=== PATIENT | male | born 1945 | race Caucasian/White ===

== ENCOUNTER 2021-09-05 06:32 | Day surgery (SDC) | payer OTHER, BC ==
[2021-09-03 11:25] LABS: Absolute Lymphocytes (CBC) 1.9 K/uL (0.7-4.9); Basophils % 0.6 % (0-1.3); Hematocrit 46.8 % (39.6-49.0); Lymphocytes % 26.8 % (15.3-44.8); MPV 8.2 fL (7.6-11.3); RBC Red Blood Cell Count 5.23 M/uL (4.33-5.43)
--- NOTE | 2021-09-03 11:36 | RAD REPORT ---
EXAM DESCRIPTION: RAD - Chest Pa And Lat (2 Views) - 09/03/2021 11:09 am CLINICAL HISTORY: Pre op pending hernia procedure COMPARISON: CHEST SINGLE VIEW dated 06/09/2015 FINDINGS: Lines: None. Lungs: No evidence of edema or pneumonia. Linear scarring in the right mid lung. Pleural: No significant pleural effusions or pneumothorax. Cardiac: The heart size is within normal limits. Bones: No acute fractures. Other: Atherosclerosis. IMPRESSION: No acute cardiopulmonary disease.
[2021-09-05] MEDS ORDERED: Ringers Lactate 1,000 ML IV ONE (06:50)
[2021-09-05] MEDS ORDERED: FENTANYL CITR 100 MCG/2 ML ONE ×2 (06:55→08:56)
[2021-09-05] MEDS ORDERED: propofoL 200 MG/20 ML VIAL IV ONE (06:56)
[2021-09-05] MEDS ORDERED: EPHEDRINE SULF 50 MG/ML VIAL ONE (06:56)
[2021-09-05] MEDS ORDERED: GLYCOPYRROLATE 0.2 MG/ML SYR ONE (06:57)
[2021-09-05] MEDS ORDERED: ROCURONIUM 50 MG/5 ML VIAL IV ONE (06:57)
[2021-09-05] MEDS ORDERED: LIDOCAINE 2% MPF 5 ML VIAL ONE (06:57)
[2021-09-05] MEDS ORDERED: ONDANSETRON 4 MG/2 ML VIAL ONE (06:59)
[2021-09-05] MEDS ORDERED: NEOSTIGMINE 1 MG/ML -5 ML ONE (06:59)
[2021-09-05] MEDS: CEFAZOLIN/NS 1gm 1 GM/50 ML BAG ONE ×2 (07:35→07:39)
[2021-09-05] MEDS: BUPIVACAINE 0.5% Inj,MDV 50 mL VIAL ONE ×2 (07:40→07:59)
[2021-09-05] MEDS: Ringers Lactate 1,000 ML IV ONE ×2 (09:36→11:10)
[2021-09-05] MEDS ORDERED: HYDROMORPHONE HCL 1 MG/ML INJ ONE (09:57)
--- NOTE | 2021-09-05 10:54 | P.BOP ---
Preoperative diagnosis: incarcerated ventral, umbilical and right inguinal hernia Postoperative diagnosis: same Primary procedure: 1. Laparoscopic repair of incarcerated ventral hernia with mesh, 2. Lap MERCEDES Secondary procedure: 3. Laparoscopic repair of umbilical hernia, 4. open RIH rep air with mesh Other procedure(s): 5. lap insional bx peritoneal hyperpigmentated lesions Anesthesia: General Implants: large ventralex mesh(ventral), RIH plug and sheet mesh Transferred to: Recovery Room Condition: Good
[2021-09-05 11:28] VITALS: TEMP 97.5; O2SAT 98
[2021-09-05] MEDS ORDERED: HYDROCODONE/APAP 7.5/325 MG TAB ONE (11:42)
[2021-09-05 14:47] VITALS: BP 134/71
--- NOTE | 2021-09-05 22:39 | OP ---
Date of Procedure: 09/05/2021 Surgeon: Donal Anna MD Preoperative Diagnoses: Incarcerated ventral hernia, incarcerated umbilical hernia, and incarcerated right inguinal hernia. Postoperative Diagnoses: Incarcerated ventral hernia, incarcerated umbilical hernia, and incarcerate d right inguinal hernia, intraabdominal peritoneal hyperpigmented lesions, and also intraabdominal ad hesions. Procedure Performed: 1.Laparoscopic repair of an incarcerated ventral hernia with mesh. 2.Laparoscopic lysis of adhesions. 3.Laparoscopic repair of umbilical hernia. 4.Open repair of right inguinal hernia with mesh. 5.Laparoscopic incisional biopsy of a hyperpigmented peritoneal lesions. Anesthesia: General plus local. Implants: A large Ventralex mesh over the ventral region and over the right inguinal region we used a mesh plug and sheath. Findings: We have incarcerated ventral, umbilical, and right inguinal hernia. We also found extensi ve intraabdominal adhesions into the anterior abdominal wall. We also found scattered all over the a bdomen peritoneal hyperpigmented lesion. The etiology of that is unknown. I noticed at one point th at some of the area has some tattoo-like appearance, it may be that this is related to it, we have many satellite lesions on the abdomen, little bit more than I expected, it does not mean allan t is not related. We did a biopsy in that region to prove it and we took some pictures. See ___ pictures in the chart. Complications: None. Estimated Blood Loss: Less than 50 mL. Indications: This is the case of a male, who comes to us with multiple problems, ventral hernia, rig ht inguinal hernia, and also umbilical hernia. Laparoscopy versus open repair with mesh of those her nias were discussed with the patient with benefits, alternatives, and risks including, but not limite d to infection, bleeding, damage to adjacent structures, anesthesia complication, recurrence, chronic pain, chronic numbness, MO, and even . He also understands this may not relieve any symptoms, he might need more than one surgical intervention. He also understands we may use mesh on those jaden ons. Mesh use pros and cons were discussed with the patient and the . Alternatives were provide d. Pros and cons of mesh use were discussed with the patient. All the questions were answered to eir satisfaction. After that, they did consent for the use of mesh. Procedure In Detail: The patient was brought to the operating room, placed supine position, anesthes ia was done without complication. Abdominal area and inguinal area were prepped and draped in usual sterile fashion. We have to divide this in 3 sessions. He has large incisions in his abdomen from p revious hernias and the right inguinal hernia once we examine that is going to be difficult, probably dangerous to do it laparoscopically, so we made an incision in the right inguinal region, incision w as carried down to Eddie fascia, which was opened under direct vision. We find external oblique apo neurosis that was opened in direction of the fibers to connect to the superficial inguinal ring. The ilioinguinal nerve and iliohypogastric nerve were clearly identified, protected behind external obli que aponeurosis without an injury. The Rajiv was placed around the spermatic cord. Hernia sac was identified, carefully dissected from the spermatic cord. The structures were carefully visualized a nd vas deferens and spermatic cord were protected. The hernia sac was then opened and some of the in testines and omental content was carefully reduced after adhesions were removed from the hernia sac a nd then the hernia sac was twisted and suture ligated with Prolene. The deep inguinal ring was once again reinforced with the use of a mesh plug, secured in place with VersaTack. Another mesh was plac ed in the floor of the canal securing that to the pubic tubercle, shelving edge of inguinal ligament and transversalis fascia and the tails of those loop around the spermatic cord without strangulation. The area was irrigated. No bleeding. At that moment, I proceeded to bring the ilioinguinal nerve, iliohypogastric nerve back into the inguinal canal, reconstructed the superficial inguinal ring, edyta sed the external oblique aponeurosis with a Prolene, closed the Eddie fascia with chromic and then t he skin with bassam. Sponge count and instrument counts were correct. Once we finished that surger y, we proceeded to go into the ventral region. An incision was made in that area. Incision was land ied down until we find a hernia sac, opened the hernia sac, found to have an intestinal content that was carefully reduced, removed the hernia sac, cleaned the fascial edges, but we have more adhesions inside. So, I placed a Annemarie trocar in that area, obtained pneumoperitoneum. We noticed the extens [place] intraabdominal adhesions not only into this hernia, but also to the umbilical region, so I procee ded to put two 5 mm trocars in each side of the abdomen. This allowed me to visualize the midline a little bit better. We noticed all these extensive adhesions, we spent about half an hour just doing those adhesions and with the help of LigaSure, making sure we do not create any enterotomies. Once w e have that, we irrigated the area, we identified also the umbilical region. Adhesions were removed. Omental was removed from that area. We have a small counter incision on the umbilical area and we closed that with Vicryl #1 stitch. Now, with laparoscope we were able to visualize and make sure no intestines are involved. Then, after that we proceeded then to continue with the ventral hernia lapa roscopically. I already have fascia clean edges and approximate the best we can in that a mohsen with #1 Prolene in a [id number] fashion multiple times, but before we closed that completely , we dropped in the abdomen a Ventralex mesh and pulled it against the peritoneum through the straps, secured in place with a CapSure and then removed the straps. Once we have that there, we took our t medardo then to go and tie each one of the Prolene #1 stitches on through the open incision in the ventra l region and secured the mesh, looks to be airproof and waterproof. Then we further secured the mesh laparoscopically under direct visualization with the help of CapSure circumferentially to avoid any intestines to come in between. At that moment, I was able to check the area of the inguinal hernia, the umbilical hernia, and ventral hernia seems to be intact in repair. The umbilical hernia did not require any mesh. The lysis of adhesions looked intact with no enterotomies. At that [facility] ent, I proceeded to remove the trocars under direct vision. Deflated pneumoperitoneum. Closed the s ubcutaneous tissue with 3-0 chromic and the skin with bassam. Sponge count, instrument counts were correct, patient tolerated the procedure well, patient was sent to recovery in stable condition. I h ave to mention before I do that, when we did look at the area of the abdomen, we noticed all these le sions all over the abdomen, just hundreds of them. When we visualized the area, it looked like it co uld be hyperpigmented lesions, but we also noticed that in the sigmoid area there were some tattoos d one there previously from previous colonoscopy, still we did a biopsy, an incisional biopsy of those by using forceps biopsy and sent it to the pathologist. Then after that, obviously we were able to r emove the trocars under direct vision, deflated pneumoperitoneum, closed the subcutaneous tissues wit h chromic and the skin with bassam. Sponge count and instrument counts were correct. The patient t olerated the procedure well. The patient was sent to recovery in stable condition. VICKY/EVELYN Voice ID: [id number] Report ID: [id number]
--- NOTE | 2021-09-05 22:53 | DS ---
Date of Discharge: 09/05/2021 Diagnosis: Incarcerated ventral, umbilical, and right inguinal hernia with intraabdominal peritoneal lesions and intraabdominal adhesions. Procedure: Laparoscopic repair of ventral, umbilical, and right inguinal hernia; laparoscopic incisi onal biopsy of hyperpigmented lesions; and also laparoscopic lysis of adhesions. The right inguinal hernia was not open. Disposition: Home. Activity: As tolerated, no heavy lifting. Plan: Follow up in my office in 1 week, call for appointment, [phone]. Keep area dry for 48 hours, then may shower. We will follow up the biopsy. When I finished the case, I was able to talk to the patient's who claimed that at [facility] they did an extensive polypectomy with multipl e biopsies done of the polyps of the colon with extensive tattooing of that area. That may explain t he lesions that we saw in the peritoneum, although we do not see they have spread normally in the abd omen, at least hopefully it is just part of a tattoo and no other pathology. VICKY/EVELYN Voice ID: [id number] Report ID: [id number]
== END 2021-09-05 14:45 | disposition home or self-care (01) ==
LOC: OR 06:32
PROVIDERS: ATTEND Surgery
PROC: 0WQF4ZZ Repair Abdominal Wall, Percutaneous Endoscopic Approach (ICD-10-PCS; 2021-09-05)
PROC: 0YU50JZ Supplement Right Inguinal Region with Synthetic Substitute, Open Approach (ICD-10-PCS; 2021-09-05)
PROC: 0DBN4ZX Excision of Sigmoid Colon, Percutaneous Endoscopic Approach, Diagnostic (ICD-10-PCS; 2021-09-05)
PROC: 0DNU4ZZ Release Omentum, Percutaneous Endoscopic Approach (ICD-10-PCS; 2021-09-05)
PROC: 0WUF4JZ Supplement Abdominal Wall with Synthetic Substitute, Percutaneous Endoscopic Approach (ICD-10-PCS; principal; 2021-09-05 07:30)
DX: K43.6 Other and unspecified ventral hernia with obstruction, without gangrene (principal); K42.0 Umbilical hernia with obstruction, without gangrene; K40.30 Unilateral inguinal hernia, with obstruction, without gangrene, not specified as recurrent; Z20.822 Contact with and (suspected) exposure to COVID-19
CPT/HCPCS: 85025; 80048; 36415; 88302; 88305; 71046; 49653 ×2; 49507; 49321; 49329; U0003; J2704; J3010 ×2; J1170; J2710; J0690; J7120; J2405

== ENCOUNTER 2024-12-13 08:47 | Inpatient (IN) | payer OTHER, BC ==
[2024-12-13] MEDS ORDERED: IPRATROPIUM BROM 0.5MG/2.5ML ONE (09:06)
[2024-12-13] MEDS ORDERED: ALBUTEROL 2.5 MG/3 ML NEB SOL ONE (09:06)
[2024-12-13] MEDS ORDERED: METHYLPREDNISOLONE 125 MG INJ ONE ×2 (09:07→09:42)
[2024-12-13 09:31] LABS: Absolute Basophils 0.1 K/uL (0-0.5); Absolute Monocytes 1.2 K/uL (0.1-1.3); Absolute Neutrophil 18.9 K/uL (1.8-8.0); Basophils % 0.7 % (0-1.3); Eosinophils % 0.2 % (0-4.4); Hematocrit 41.8 % (39.6-49.0); Hemoglobin 13.5 g/dL (13.6-17.9); Lymphocytes % 4.6 % (15.3-44.8); MCH 28.7 pg (27.0-35.0); MCHC 32.4 g/dL (32.0-36.0); MCV 88.4 fL (80-100); MPV 7.5 fL (7.6-11.3); Monocytes % 5.6 % (3.3-12.3); Neutrophils % 88.9 % (41.7-73.7); Platelets 322 thou/uL (152-406); RBC Red Blood Cell Count 4.72 M/uL (4.33-5.43); Red Cell Distribution Width 14.5 % (12.1-15.2)
[2024-12-13 09:37] LABS: Protime INR 1.62
[2024-12-13 10:01] LABS: Albumin 2.5 g/dL (3.4-5.0); Albumin/Globulin Ratio 0.5 (1.1-1.8); Anion Gap 9.6 mEq/L (5.0-15.0); Bilirubin Direct 0.4 mg/dL (0-0.2); Bilirubin Indirect, Calculated 0.6 mg/dL (0.2-0.8); Globulin 5.2 g/dL (2.3-3.5); Magnesium 2.1 mg/dL (1.6-2.4); Potassium 3.6 mEq/L (3.5-5.1); Protein, Total 7.7 g/dL (6.4-8.2)
[2024-12-13 10:03] LABS: Troponin High Sensitivity 125.9 pg/mL (<58.9)
--- NOTE | 2024-12-13 10:09 | RAD REPORT ---
Procedure: Chest Single View HISTORY: Shortness of breath COMPARISON: 2020 FINDINGS: Lungs are moderately hyperaerated. Mild reticular nodular opacities right lung. Left lung appears clear of acute infiltrate. No significant pleural effusion noted. The heart is normal size. IMPRESSION: Moderate COPD Mild reticular nodular opacities right lung may indicate pneumonitis or mild atypical pneumonia.
--- NOTE | 2024-12-13 10:15 | EDPHYS ---
Physician Documentation [facility] Name: Gee Presley Age: 79 yrs Sex: Male : 1945 Arrival Date: 12/13/2024 Time: 08:47 Bed 6 Private MD: ED Physician Lino Duenas HPI: 12/13 09:04 This 79 yrs old Male presents to ER via Unassigned with complaints of Shortness Of sp3 Breath. 09:04 79-year-old male with COPD, atrial fibrillation on Eliquis, home O2 as needed sent from 3 Dr. Cruz's office for hypoxia in the low 80s, difficulty breathing, and mild wheezing. Patient denies any pain, fever, cough, known sick contacts, travel history, prolonged immobilization, or any other signs or symptoms on ROS at this time.. Historical: - Allergies: 09:07 Morphine; ss - PMHx: 09:07 Chronic obstructive lung disease; High Cholesterol; Hypertensive disorder; kidney ss cancer; Atrial fibrillation; - PSHx: 09:07 Cholecystectomy; hernia; right kidney removal; ss - Immunization history:: Adult Immunizations unknown. - Infectious Disease History:: Denies. - Social history:: Smoking status: Patient/guardian denies using tobacco, Stopped _ months ago 2. ROS: 09:05 Constitutional: Negative for fever, chills, and weight loss, Eyes: Negative for injury, sp3 pain, redness, and discharge, ENT: Negative for injury, pain, and discharge, Neck: Negative for injury, pain, and swelling, Cardiovascular: Negative for chest pain, palpitations, and edema, Abdomen/GI: Negative for abdominal pain, nausea, vomiting, diarrhea, and constipation, Back: Negative for injury and pain, MS/Extremity: Negative for injury and deformity, Skin: Negative for injury, rash, and discoloration, Neuro: Negative for headache, weakness, numbness, tingling, and seizure, Psych: Negative for depression, anxiety, suicide ideation, homicidal ideation, and hallucinations, Allergy/Immunology: Negative for hives, rash, and allergies, Endocrine: Negative for neck swelling, polydipsia, polyuria, polyphagia, and marked weight changes, Hematologic/Lymphatic: Negative for swollen nodes, abnormal bleeding, and unusual bruising, 09:05 All other systems are negative, Exam: 09:05 Constitutional: This is a well developed, well nourished patient who is awake, alert, sp3 and in no acute distress. Head/Face: Normocephalic, atraumatic. Eyes: Pupils equal round and reactive to light, extra-ocular motions intact. Lids and lashes normal. Conjunctiva and sclera are non-icteric and not injected. Cornea within normal limits. Periorbital areas with no swelling, redness, or edema. Neck: Trachea midline, no thyromegaly or masses palpated, and no cervical lymphadenopathy. Supple, full range of motion without nuchal rigidity, or vertebral point tenderness. No Meningismus. Chest/axilla: Normal chest wall appearance and motion. Nontender with no deformity. No lesions are appreciated. Cardiovascular: Regular rate and rhythm with a normal S1 and S2. No gallops, murmurs, or rubs. Normal PMI, no JVD. No pulse deficits. Abdomen/GI: Soft, non-tender, with normal bowel sounds. No distension or tympany. No guarding or rebound. No evidence of tenderness throughout. Back: No spinal tenderness. No costovertebral tenderness. Full range of motion. Skin: Warm, dry with normal turgor. Normal color with no rashes, no lesions, and no evidence of cellulitis. MS/ Extremity: Pulses equal, no cyanosis. Neurovascular intact. Full, normal range of motion. Neuro: Awake and alert, GCS 15, oriented to person, place, time, and situation. Cranial nerves II-XII grossly intact. Motor strength 5/5 in all extremities. Sensory grossly intact. Cerebellar exam normal. Normal gait. Psych: Awake, alert, with orientation to person, place and time. Behavior, mood, and affect are within normal limits. 09:05 Respiratory: Scattered wheezes noted. No significant rales., 10:40 ECG was reviewed by the Attending Physician. EKG demonstrates sinus tachycardia at 105 sp3 bpm with normal intervals, right bundle branch block and nonspecific diffuse ST/T changes without evidence of acute ischemia. Vital Signs: 09:03 BP 127 / 64; Pulse 103; Resp 24; Temp 99(O); Pulse Ox 80% on R/A; Weight 67.59 kg; ss Height 5 ft. 10 in. ; Pain 0/10; 10:02 BP 127 / 64; Pulse 104; Resp 28; Temp 98.3; Pulse Ox 89% ; jl7 11:15 BP 105 / 52; Pulse 94; Resp 19; Pulse Ox 92% on 15 lpm Venturi mask; jl7 12:20 BP 102 / 56; Pulse 84; Resp 20; Temp 98; Pulse Ox 92% on Venturi mask; ph 09:03 Body Mass Index 21.38 (67.59 kg, 177.8 cm) ss 09:03 Pain Scale: Adult ss MDM: 08:55 Medical Screening Exam initiated sp3 09:05 Data reviewed: vital signs, nurses notes, old medical records, lab test result(s), EKG, sp3 radiologic studies. ED course: 79-year-old male with COPD and hypoxia. Differential diagnosis include COPD exacerbation, pneumonia, bronchitis, CHF, ACS, among others. I am not highly suspicious of PE, TAD, sepsis, shock or any other critical process. Workup will include general labs, chest x-ray, EKG and treatment with Solu-Medrol and nebulizers. Will later on antibiotics as indicated. Disposition pending workup and patient course with probable admission under Dr. Cruz.. 10:36 ED course: After reviewing results, patient is now more pneumonia and early sepsis sp3 compared to COPD exacerbation. Pulse oxygenation is significantly better on nebulizer and we have ordered a lactate prior to antibiotics as well as normal saline. Blood pressure initially was 127/64 and is now 98 systolic. Heart rate remains between 90 and 100. Patient is a lot more comfortable. I discussed the case with and we will admit at this time.. 12/13 09:02 Order name: Basic Metabolic Panel; Complete Time: 10:04 sp3 12/13 09:02 Order name: CBC with Diff; Complete Time: 10:36 sp3 12/13 09:02 Order name: LFT's; Complete Time: 10:04 sp3 12/13 09:02 Order name: Magnesium; Complete Time: 10:04 3 12/13 09:02 Order name: NT PRO-BNP; Complete Time: 10:04 3 12/13 09:02 Order name: PT-INR; Complete Time: 09:54 sp3 12/13 09:02 Order name: Troponin HS; Complete Time: 10:04 sp3 12/13 09:02 Order name: Blood Culture Adult (2) sp3 12/13 10:19 Order name: Lactate w/ 2H reflex if indic.; Complete Time: 11:13 sp3 12/13 10:35 Order name: Manual Differential; Complete Time: 10:36 EDMS 12/13 09:02 Order name: XRAY Chest (1 view); Complete Time: 10:12 sp3 12/13 09:02 Order name: Cardiac monitoring; Complete Time: 09:24 sp3 12/13 09:02 Order name: EKG - Nurse/Tech; Complete Time: 10:00 sp3 12/13 09:02 Order name: IV Saline Lock; Complete Time: 09:23 sp3 12/13 09:02 Order name: Labs collected and sent; Complete Time: 09:23 sp3 12/13 09:02 Order name: O2 Per Protocol; Complete Time: 09:23 sp3 12/13 09:02 Order name: O2 Sat Monitoring; Complete Time: 09:23 sp3 Administered Medications: 09:24 Drug: DuoNeb Nebulize (3:1) (2.5 mg - 0.5 mg) 3 ml Nebulizer once Route: Nebulizer; jl7 11:44 Follow up: Response: No adverse reaction jl7 10:00 Drug: MethylPrednisoLONE IVP 125 mg IVP once Route: IVP; Site: right forearm; jl7 11:44 Follow up: Response: No adverse reaction jl7 10:39 Drug: Cefepime IVPB 1 grams IVPB at 200 ml/hr once over 30 mins; (mix in NS 100 mL) jl7 Route: IVPB; Rate: 200 ml/hr; Infused Over: 30 mins; Site: right forearm; 11:09 Follow up: Response: No adverse reaction; IV Status: Completed infusion jl7 10:39 Drug: NS 0.9% IV 1000 ml IV at 1 bolus Per protocol; to be given as a bolus over 60 jl7 minutes Route: IV; Rate: 1 bolus; Site: right forearm; 11:56 Follow up: Response: No adverse reaction; IV Status: Completed infusion; IV Intake: jl7 1000ml Disposition: 10:41 Critical Care:. sp3 Disposition Summary: 12/13/24 10:14 Hospitalization Ordered Notes: Hospitalization Status: Inpatient Admission sp3 Provider: Colton Cruz sp3 Condition: Stable sp3 Problem: an acute exacerbation sp3 Symptoms: have worsened sp3 Bed/Room Type: Standard sp3 Location: Telemetry/MedSurg (Inpatient)(12/13/24 11:36) bd Room Assignment: 213(12/13/24 11:36) bd Diagnosis - Pneumonia, unspecified organism sp3 - COPD/ Chronic obstructive pulmonary disease with (acute) exacerbation sp3 Forms: - Medication Reconciliation Form sp3 - SBAR form sp3 - Leadership Thank You Letter sp3 Critical care time excluding procedures: 10:41 Critical care time: Bedside Care: 10 minutes, Consultation: 10 minutes, Family sp3 Intervention: 10 minutes. Total time: 30 minutes Signatures: Dispatcher [employer] EDMS Toya diana Monica Marroquin RN RN ss Angelika Lang RN RN jl7 Lino Duenas MD MD sp3 Corrections: (The following items were deleted from the chart) 09:02 09:02 BASIC METABOLIC PANEL+C.LAB.BRZ ordered. EDMS EDMS 09:02 09:02 CBC+H.LAB.BRZ ordered. EDMS EDMS 09:02 09:02 HEPATIC FUNCTION+C.LAB.BRZ ordered. EDMS EDMS 09:02 09:02 MAGNESIUM+C.LAB.BRZ ordered. EDMS EDMS 09:02 09:02 PROBNP+C.LAB.BRZ ordered. EDMS EDMS 09:02 09:02 PROTIME (+INR)+COAG.LAB.BRZ ordered. EDMS EDMS 09:02 09:02 Troponin High Sensitivity+C.LAB.BRZ ordered. EDMS EDMS 09:02 09:02 BLOOD CULTURE*+BA.LAB.BRZ ordered. EDMS EDMS 09:03 09:02 Chest Single View+RAD.RAD.BRZ ordered. EDMS EDMS 10:19 10:19 LACTATE+C.LAB.BRZ ordered. EDMS EDMS 11:28 10:14 Telemetry/MedSurg (Inpatient) sp3 bd 11:28 10:14 sp3 bd 11:36 11:28 [facility] ER HOLD bd bd 11:36 11:28 ERHOLD- bd bd
--- NOTE | 2024-12-13 10:15 | ER ---
Nurse's Notes [facility] Name: Gee Presley Age: 79 yrs Sex: Male : 1945 Arrival Date: 12/13/2024 Time: 08:47 Bed 6 Private MD: Diagnosis: Pneumonia, unspecified organism;COPD/ Chronic obstructive pulmonary disease with (acute) exacerbation Presentation: 12/13 09:03 Chief complaint: Patient states: cough and shortness of breath that began Friday. Pt ss was seen this morning in Dr. Cruz's office this morning and told to come through the ER for further evaluation and treatment as O2 was 80% on RA. Pt uses home O2 at night. Coronavirus screen: Client denies travel out of the [place] in the last 14 days. Ebola Screen: Patient denies exposure to infectious person. Patient denies travel to an Ebola-affected area in the 21 days before illness onset. Initial Sepsis Screen: Does the patient meet any 2 criteria? No. Patient's initial sepsis screen is negative. Does the patient have a suspected source of infection? No. Patient's initial sepsis screen is negative. Risk Assessment: Do you want to hurt yourself or someone else? Patient reports no desire to harm self or others. Onset of symptoms was December 08, 2024. 09:03 Method Of Arrival: Wheelchair ss 09:03 Acuity: PITA 2 ss Historical: - Allergies: 09:07 Morphine; ss - PMHx: 09:07 Chronic obstructive lung disease; High Cholesterol; Hypertensive disorder; kidney ss cancer; Atrial fibrillation; - PSHx: 09:07 Cholecystectomy; hernia; right kidney removal; ss - Immunization history:: Adult Immunizations unknown. - Infectious Disease History:: Denies. - Social history:: Smoking status: Patient/guardian denies using tobacco, Stopped _ months ago 2. Screenin:00 [facility] ED Fall Risk Assessment (Adult) History of falling in the last 3 months, jl7 including since admission No falls in past 3 months (0 pts) Confusion or Disorientation No (0 pts) Intoxicated or Sedated No (0 pts) Impaired Gait No (0 pts) Mobility Assist Device Used No (0 pt) Altered Elimination No (0 pt) Score/Fall Risk Level 0 - 2 = Low Risk Oriented to surroundings, Maintained a safe environment. Abuse screen: Denies threats or abuse. Denies injuries from another. Nutritional screening: No deficits noted. Tuberculosis screening: No symptoms or risk factors identified. Assessment: 09:00 General: Appears in no apparent distress. uncomfortable, Behavior is calm, cooperative, jl7 appropriate for age. Pain: Denies pain. Neuro: Level of Consciousness is awake, alert, obeys commands, Oriented to person, place, time, situation. Cardiovascular: Rhythm is regular. Respiratory: Airway is patent Respiratory effort is even, labored, Respiratory pattern is symmetrical, tachypnea Breath sounds are diminished bilaterally. Derm: Skin is pink, warm \T\ dry. 10:00 Reassessment: Patient appears in no apparent distress at this time. No changes from jl7 previously documented assessment. Patient and/or family updated on plan of care and expected duration. Pain level reassessed. Patient is alert, oriented x 3, equal unlabored respirations, skin warm/dry/pink. 11:00 Reassessment: Patient appears in no apparent distress at this time. No changes from jl7 previously documented assessment. Patient and/or family updated on plan of care and expected duration. Pain level reassessed. Patient is alert, oriented x 3, equal unlabored respirations, skin warm/dry/pink. Vital Signs: 09:03 BP 127 / 64; Pulse 103; Resp 24; Temp 99(O); Pulse Ox 80% on R/A; Weight 67.59 kg; ss Height 5 ft. 10 in. ; Pain 0/10; 10:02 BP 127 / 64; Pulse 104; Resp 28; Temp 98.3; Pulse Ox 89% ; jl7 11:15 BP 105 / 52; Pulse 94; Resp 19; Pulse Ox 92% on 15 lpm Venturi mask; jl7 12:20 BP 102 / 56; Pulse 84; Resp 20; Temp 98; Pulse Ox 92% on Venturi mask; ph 09:03 Body Mass Index 21.38 (67.59 kg, 177.8 cm) ss 09:03 Pain Scale: Adult ss ED Course: 08:49 Patient arrived in ED. mr 08:49 Lino Duenas MD is Attending Physician. sp3 08:52 Angelika Lang RN is Primary Nurse. jl7 09:07 Triage completed. ss 09:07 Arm band placed on right wrist. ss 09:10 Initial lab(s) drawn, by me, sent to lab. First set of blood cultures drawn by me. jl7 09:20 Inserted saline lock: 20 gauge in right forearm, using aseptic technique. Blood jl7 collected. Flushed with 10 mL NS. 09:20 Second set of blood cultures drawn by me. jl7 09:46 XRAY Chest (1 view) In Process Unspecified. EDMS 10:00 Patient has correct armband on for positive identification. Placed in gown. Bed in low jl7 position. Call light in reach. Side rails up X 1. Provided Education on: use of call perales. Client placed on continuous cardiac and pulse oximetry monitoring. NIBP monitoring applied. it operations manager on. 10:02 EKG done, by ED staff, reviewed by Lino Duenas MD. jl7 10:13 Colton Cruz MD is Hospitalizing Provider. sp3 11:46 No provider procedures requiring assistance completed. Patient admitted, IV remains in jl7 place. intact, No redness/swelling at site. Administered Medications: 09:24 Drug: DuoNeb Nebulize (3:1) (2.5 mg - 0.5 mg) 3 ml Nebulizer once Route: Nebulizer; jl7 11:44 Follow up: Response: No adverse reaction jl7 10:00 Drug: MethylPrednisoLONE IVP 125 mg IVP once Route: IVP; Site: right forearm; jl7 11:44 Follow up: Response: No adverse reaction jl7 10:39 Drug: Cefepime IVPB 1 grams IVPB at 200 ml/hr once over 30 mins; (mix in NS 100 mL) jl7 Route: IVPB; Rate: 200 ml/hr; Infused Over: 30 mins; Site: right forearm; 11:09 Follow up: Response: No adverse reaction; IV Status: Completed infusion jl7 10:39 Drug: NS 0.9% IV 1000 ml IV at 1 bolus Per protocol; to be given as a bolus over 60 jl7 minutes Route: IV; Rate: 1 bolus; Site: right forearm; 11:56 Follow up: Response: No adverse reaction; IV Status: Completed infusion; IV Intake: jl7 1000ml Medication: 11:00 VIS not applicable for this client. jl7 Intake: 11:56 IV: 1000ml; Total: 1000ml. jl7 Outcome: 10:14 Decision to Hospitalize by Provider. sp3 11:55 Admitted to Tele accompanied by tech, family with patient, via stretcher, room 213, jl7 with oxygen, with chart, :55 Condition: stable 11:55 Discharge instructions given to patient, family, Instructed on the need for admit, Demonstrated understanding of instructions, 13:03 Patient left the ED. ph Signatures: Dispatcher [employer] EDFL Sommer Lloyd, Reg Reg mr Monica Baumann, RN RN Liliana Burks RN RN Angelika Lang RN RN jl7 Lino Duenas MD MD sp3
[2024-12-13] MEDS ORDERED: NA CHLORIDE 0.9% 100 ML ONE (10:18)
[2024-12-13] MEDS ORDERED: CEFEPIME 1 GM/VIAL ONE (10:18)
[2024-12-13 10:34] LABS: Blood Morphology Comment NOT SEEN (NOT SEEN); Differential Total Cells Count 100; Lymphocytes 3 % (15-42); Monocytes 7 % (0-10); Platelet Estimate ADEQ; Platelets Clumped NOTED; Segmented Neutrophils 90 % (40-80)
[2024-12-13 10:35] LABS: Toxic Granulation 2+
[2024-12-13] MEDS ORDERED: NA CHLORIDE 0.9% 1,000 ML ONE (10:38)
[2024-12-13 14:56] VITALS: BMI 21.4
[2024-12-13] MEDS: METHYLPREDNISOLONE 125 MG INJ IV SCH (15:40)
[2024-12-13] MEDS: NA CHLORIDE 0.9% 1,000 ML IV SCH (15:40)
[2024-12-13] MEDS: ALBUTEROL 2.5 MG/3 ML NEB SOL NEB PRN (16:15)
[2024-12-13] MEDS: IPRATROPIUM BROM 0.5MG/2.5ML NEB PRN (16:15)
[2024-12-13] MEDS: CEFEPIME 1 GM in NA CHLORIDE 0.9% 100 ML IV SCH (20:21)
[2024-12-14 04:27] LABS: Absolute Lymphocytes (CBC) 0.4 K/uL (0.7-4.9); Absolute Monocytes 0.2 K/uL (0.1-1.3); Absolute Neutrophil 13.6 K/uL (1.8-8.0); Basophils % 0.2 % (0-1.3); Hematocrit 33.7 % (39.6-49.0); Hemoglobin 11.7 g/dL (13.6-17.9); Lymphocytes % 3.1 % (15.3-44.8); MCH 29.6 pg (27.0-35.0); MCHC 34.8 g/dL (32.0-36.0); MCV 85.3 fL (80-100); Monocytes % 1.6 % (3.3-12.3); Platelets 224 thou/uL (152-406); RBC Red Blood Cell Count 3.95 M/uL (4.33-5.43); Red Cell Distribution Width 14.1 % (12.1-15.2)
[2024-12-14 04:29] LABS: Neutrophils % 95.1 % (41.7-73.7)
[2024-12-14 04:50] LABS: Anion Gap 9.4 mEq/L (5.0-15.0); Potassium 3.4 mEq/L (3.5-5.1)
[2024-12-14] MEDS: METOPROLOL XL 50 MG TAB PO SCH (09:00)
[2024-12-14] MEDS ORDERED: AMLODIPINE 5 MG TAB PO SCH (09:00)
[2024-12-14] MEDS: AMIODARONE HCL 200 MG TAB PO SCH (09:53)
[2024-12-14] MEDS: TAMSULOSIN 0.4 MG SR CAP PO SCH (09:53)
[2024-12-14] MEDS: APIXABAN 2.5 MG TABLET PO SCH (09:53)
[2024-12-14] MEDS: CLOPIDOGREL 75 MG TABLET PO SCH (09:54)
[2024-12-14] MEDS: FINASTERIDE 5 MG TAB PO SCH (09:54)
--- NOTE | 2024-12-14 12:21 | EKG ---
Test Date: 2024-12-13 Test Time: 09:50:16 Patrol Judge: PAL MEASUREMENT RESULTS: Intervals: Rate: 105 MS: 174 QRSD: 128 QT: 382 QTc: 504 [place]: P: 75 MS: 174 QRS: 188 T: 42 INTERPRETIVE STATEMENTS: Sinus tachycardia Right bundle branch block Abnormal ECG Compared to ECG 03/28/2024 00:46:54 Right bundle-branch block now present Sinus rhythm no longer present Right ventricular hypertrophy no longer present Early repolarization no longer present Prolonged QT interval no longer present Electronically Signed On 12-14-24 12:20:15 CDT by Demarcus Soto
[2024-12-14] MEDS: PNEUMOCOCCAL VACCINE 0.5 ML IMVAC ONE (13:00)
--- NOTE | 2024-12-14 13:25 | P.PN ---
Subjective Date of Service: 12/14/24 Chief Complaint: IMPROVED SOME. Subjective: Improving TIMOTHY IS A SEVERE COPD PATIENT WHO IS A SMOKER COMES WITH COPD EXACERBATION. WBC OF 20K AND NOW AFTER ANTIBIOTICS, STEOIDS AND NEBS HE HAS IMPROVED SOME. Review of Systems 10-point ROS is otherwise unremarkable General: Weakness, As per HPI Physical Examination - Vital Signs Temperature: 97.6 F Blood Pressure: 118/59 Pulse: 60 Respirations: 24 Pulse Ox (%): 96 - Physical Exam General: Oriented x3, Cachectic, Moderate distress HEENT: Atraumatic, PERRLA, EOMI Neck: Supple, JVD not distended Respiratory: Diminished, Rhonchi/gurgles Cardiovascular: Regular rate/rhythm, Normal S1 S2 Gastrointestinal: Normal bowel sounds, No tenderness Musculoskeletal: No tenderness Integumentary: No rashes Neurological: Normal speech, Normal tone, Normal affect Lymphatics: No axilla or inguinal lymphadenopathy - Studies Medications List Reviewed: Yes Assessment And Plan - Current Problems (Diagnosis) (1) Hypoxia Onset Date: 06/12/15 Current Visit: No Status: Acute (2) COPD (chronic obstructive pulmonary disease) Current Visit: No Status: Chronic Plan: SEVERE STILL SMOKES CONT MEDS. POOR PROGNOSIS DW . Qualifiers: (3) A-fib Current Visit: Yes Status: Acute Plan: I WILL TALK TO DR. ARANDA IF WE CAN REDUCE AMIO AND STOP ASPIRIN.
--- NOTE | 2024-12-14 17:14 | RAD REPORT ---
EXAMINATION: COMPLETE ABDOMINAL ULTRASOUND CLINICAL INDICATION: Male, 79 years, PAIN IN ABDOMEN TECHNIQUE: Grayscale ultrasonography of the abdomen was performed. [id number]. COMPARISON: CT 08/02/2021 FINDINGS: LIVER: Increased echogenicity with reduced sonographic penetration and without focal mass. GALLBLADDER: Surgically absent gallbladder. Common bile duct measures 10 mm. BILE DUCTS: Extrahepatic biliary duct dilatation. 10 mm. This is similar to 2020. RIGHT KIDNEY: Surgically absent LEFT KIDNEY: Left renal length measurement: 12.5 cm. Normal in echogenicity and size. No calculus, s olid mass or hydronephrosis. Benign left renal cyst measuring 2.5 cm. A 13 mm lower pole renal cyst also present. SPLEEN: Granulomatous changes in the spleen. 11 cm PANCREAS: The visualized pancreas is normal in size and echogenicity. AORTA AND INFERIOR VENA CAVA: Visualized segments of the aorta and inferior vena cava are normal. ASCITES: None. ADDITIONAL FINDINGS: None. IMPRESSION: Cholecystomy. Similar extrahepatic biliary ductal dilatation compared with 08/02/2021. Surgically absent right kidney. No left-sided hydronephrosis. Benign left renal cyst.
--- NOTE | 2024-12-14 17:17 | RAD REPORT ---
EXAM: Pelvic ultrasound COMPARISON: None CLINICAL INDICATION: RETENTION OF URINE. TECHNIQUE: Multiplanar grayscale and color flow sonographic images were obtained through the pelvis for evaluation of the bladder.. FINDINGS: Reportedly, the patient voided just before the exam. The postvoid volume is 343 mL. Prostat omegaly. The bladder wall shows no focal thickening or mass. No echogenic calculi. IMPRESSION: Per the electromedical equipment repairer note, the patient voided just prior to the ultrasound. The bladder volume was ryan sured at 343 mL which would indicate urinary retention.
[2024-12-14] MEDS: MIRTAZAPINE 15 MG TAB PO SCH (20:16)
[2024-12-14] MEDS: ATORVASTATIN 80 MG TAB PO SCH (20:17)
[2024-12-15 05:35] LABS: Anion Gap 9.3 mEq/L (5.0-15.0); Potassium 3.3 mEq/L (3.5-5.1)
[2024-12-15 05:52] LABS: Absolute Lymphocytes (CBC) 0.4 K/uL (0.7-4.9); Absolute Monocytes 0.4 K/uL (0.1-1.3); Absolute Neutrophil 15.9 K/uL (1.8-8.0); Basophils % 0.1 % (0-1.3); Hemoglobin 11.9 g/dL (13.6-17.9); Lymphocytes % 2.6 % (15.3-44.8); MCH 29.4 pg (27.0-35.0); MCHC 34.1 g/dL (32.0-36.0); MCV 86.2 fL (80-100); MPV 8.2 fL (7.6-11.3); Monocytes % 2.2 % (3.3-12.3); Neutrophils % 95.1 % (41.7-73.7); Platelets 266 thou/uL (152-406); RBC Red Blood Cell Count 4.06 M/uL (4.33-5.43)
[2024-12-15] MEDS ORDERED: PNEUMOCOCCAL VACCINE 0.5 ML IMVAC ONE (13:00)
--- NOTE | 2024-12-15 18:04 | P.PN ---
Subjective Date of Service: 12/15/24 Chief Complaint: IMPROVED SOME. Subjective: Improving TIMOTHY IS A SEVERE COPD PATIENT WHO IS A SMOKER COMES WITH COPD EXACERBATION. WBC OF 20K AND NOW AFTER ANTIBIOTICS, STEOIDS AND NEBS HE HAS IMPROVED SOME. HE IS STILL DEPENDENT ON THE OXYGEN. FEELS BETTER. NOT ABLE TO HEAR OR SEE MUCH. I TALKED TO TO DISCUSS. Review of Systems 10-point ROS is otherwise unremarkable General: Weakness, As per HPI Respiratory: Shortness of Breath Physical Examination - Vital Signs Temperature: 97.4 F Blood Pressure: 128/62 Pulse: 59 Respirations: 14 Pulse Ox (%): 97 - Physical Exam General: Cachectic, Moderate distress HEENT: Atraumatic, PERRLA, EOMI Neck: Supple, JVD not distended Respiratory: Diminished, Crackles/rales, Rhonchi/gurgles Cardiovascular: Regular rate/rhythm, Normal S1 S2 Gastrointestinal: Normal bowel sounds, No tenderness Musculoskeletal: No tenderness Integumentary: No rashes Neurological: Normal speech, Normal tone, Normal affect Lymphatics: No axilla or inguinal lymphadenopathy - Studies Medications List Reviewed: Yes Assessment And Plan - Current Problems (Diagnosis) (1) Hypoxia Onset Date: 06/12/15 Current Visit: No Status: Acute (2) COPD (chronic obstructive pulmonary disease) Current Visit: No Status: Chronic Plan: SEVERE STILL SMOKES CONT MEDS. POOR PROGNOSIS DW . SEVERE, END STAGE COPD. CONTINUE MEDS. HE MAY BE ABLE TO GO HOME IN AM. STILL SMOKES. Qualifiers: (3) A-fib Current Visit: Yes Status: Acute Plan: I WILL TALK TO DR. ARANDA IF WE CAN REDUCE AMIO AND STOP ASPIRIN.
[2024-12-15] MEDS: POTASSIUM CL SA 10 MEQ TAB PO SCH (20:30)
[2024-12-16 04:29] LABS: Absolute Basophils 0.1 K/uL (0-0.5); Absolute Lymphocytes (CBC) 0.5 K/uL (0.7-4.9); Absolute Monocytes 0.3 K/uL (0.1-1.3); Absolute Neutrophil 13.9 K/uL (1.8-8.0); Basophils % 0.4 % (0-1.3); Hematocrit 35.5 % (39.6-49.0); Hemoglobin 11.8 g/dL (13.6-17.9); Lymphocytes % 3.6 % (15.3-44.8); MCH 29.1 pg (27.0-35.0); MCHC 33.2 g/dL (32.0-36.0); MCV 87.8 fL (80-100); MPV 7.7 fL (7.6-11.3); Monocytes % 2.3 % (3.3-12.3); Platelets 339 thou/uL (152-406); RBC Red Blood Cell Count 4.05 M/uL (4.33-5.43); Red Cell Distribution Width 14.7 % (12.1-15.2)
[2024-12-16 04:40] LABS: Neutrophils % 93.7 % (41.7-73.7)
[2024-12-16 09:53] VITALS: O2SAT 90
[2024-12-16 11:56] VITALS: TEMP 97.6
[2024-12-16 16:38] VITALS: BP 140/66
--- NOTE | 2024-12-22 16:05 | P.DS ---
Admission Date: 12/13/24 Discharge Date: 12/22/24 Disposition: ROUTINE DISCHARGE Discharge Condition: SERIOUS Reason for Admission: IMPROVED SOME. - Problems (1) Hypoxia Onset Date: 06/12/15 Status: Acute (2) COPD (chronic obstructive pulmonary disease) Status: Chronic Qualifiers: (3) A-fib Status: Acute Hospital Course: PATIENT COMES WITH SEVERE COPD. HE IMPROVED SOME BUT STILL SMOKES AND HAS HYPOXIA. I ADVISED HOSPICE FOR NURSING HOME BUT PATIENT HAS PULMONARY MD AND HE ADVISED [facility]. PATIENT REFUSED AND WENT HOME ON 4 LT NC. PROGNOSIS IS POOR. Vital Signs/Physical Exam: Temp Pulse Resp BP Pulse Ox 97.6 F 63 18 140/66 97 12/16/24 16:00 12/16/24 16:00 12/16/24 16:00 12/16/24 16:00 12/16/24 16:00 Laboratory Data at Discharge: WBC 14.80 thou/uL (4.3-10.9) H 12/16/24 04:12 Hgb 11.8 g/dL (13.6-17.9) L 12/16/24 04:12 Hct 35.5 % (39.6-49.0) L 12/16/24 04:12 Plt Count 339 thou/uL (152-406) D 12/16/24 04:12 PT 18.0 SECONDS (10-13.0) H 12/13/24 09:20 INR 1.62 12/13/24 09:20 Sodium 140 mEq/L (136-145) 12/16/24 04:12 Potassium 4.0 mEq/L (3.5-5.1) D 12/16/24 04:12 BUN 52 mg/dL (7-18) H 12/16/24 04:12 Creatinine 1.80 mg/dL (0.70-1.30) H 12/16/24 04:12 Glucose 145 mg/dL (74-106) H 12/16/24 04:12 Magnesium 2.1 mg/dL (1.6-2.4) 12/13/24 09:20 Total Bilirubin 1.0 mg/dL (0.2-1.0) 12/13/24 09:20 AST 72 U/L (15-37) H 12/13/24 09:20 ALT 115 U/L (16-61) H 12/13/24 09:20 Alkaline Phosphatase 133 U/L (45-117) H 12/13/24 09:20 Home Medications: Metoprolol Succinate [Toprol Xl*] 50 mg PO DAILY 06/09/15 Tamsulosin HCl 0.4 mg PO DAILY 09/03/21 Aspirin 81 mg PO DAILY 11/16/23 Atorvastatin Calcium [Lipitor] 80 mg PO BEDTIME 11/16/23 Losartan Potassium 100 mg PO DAILY 11/16/23 Amiodarone HCl [Cordarone*] 200 mg PO BID 12/13/24 Apixaban [Eliquis *] 2.5 mg PO BID 12/13/24 Clopidogrel Bisulfate [Plavix*] 75 mg .ROUTE DAILY 12/13/24 Finasteride 5 mg PO DAILY 12/13/24 Mirtazapine 7.5 mg PO BEDTIME 12/13/24 Amoxicillin/Potassium Clav [Amox Tr-K Clv 875-125 mg Tab] 1 each PO BID #14 tab 12/16/24 New Medications: Amoxicillin/Potassium Clav [Amox Tr-K Clv 875-125 mg Tab] 1 each PO BID #14 tab Followup: Colton Cruz MD [Primary Care Provider] - 1-2 Weeks
== END 2024-12-16 19:06 | disposition home or self-care (01) | DRG 193 ==
LOC: ER 08:47 → ERHOLD 10:24 → 2ND 11:50 → ERHOLD 11:59 → 2ND 13:52
PROVIDERS: ADMIT Internal Medicine; ATTEND Internal Medicine
PROC: 5A0935A Assistance with Respiratory Ventilation, Less than 24 Consecutive Hours, High Flow/Velocity Cannula (ICD-10-PCS; principal; 2024-12-14)
DX: J18.9 Pneumonia, unspecified organism (principal); J96.21 Acute and chronic respiratory failure with hypoxia; J44.0 Chronic obstructive pulmonary disease with (acute) lower respiratory infection; J44.1 Chronic obstructive pulmonary disease with (acute) exacerbation; N18.30 Chronic kidney disease, stage 3 unspecified; I12.9 Hypertensive chronic kidney disease with stage 1 through stage 4 chronic kidney disease, or unspecified chronic kidney disease; I48.91 Unspecified atrial fibrillation; F17.210 Nicotine dependence, cigarettes, uncomplicated; N40.0 Benign prostatic hyperplasia without lower urinary tract symptoms; Z99.81 Dependence on supplemental oxygen; Z79.01 Long term (current) use of anticoagulants; Z85.528 Personal history of other malignant neoplasm of kidney
CPT/HCPCS: 36415; 71045; 76700; 76856; 80048; 80076; 83605; 83735; 83880; 84484; 85025; 85610; 87040; 93005; 94640; 94760; 96361; 96365; 96375; 99285; J0692; J2919; J7030; J7613; J7644